=== PATIENT | female | born 1975 | race Caucasian/White ===

== ENCOUNTER 2018-08-12 08:39 | Day surgery (SDC) | payer MEDICAID ==
[~2018-08-12] VITALS: Ht 170.2 cm; Wt 82.9 kg
[2018-08-12] VITALS (15 sets, daily range): BP systolic 107–122; BP diastolic 61–82; PULSE 66–100; RESP 11–20; Ht 170.2 cm; Wt 82.9 kg
[~2018-08-12 08:39] MED LIST: CEFAZOLIN 2 GM/50 ML (PMX) 50 ML IVPB ONE; SOD CHLORIDE 0.9% 1,000 ML IV SCH
--- NOTE | 2018-08-12 12:07 | PREAC ---
Date/Time of Note Date/Time of Note DATE: 08/12/18 TIME: 12:06 Anesthesia Eval and Record Evaluation Time Pre-Procedure Interview DATE: 08/12/18 TIME: 12:06 Age 43 Sex female NPO: 8 hrs Preoperative diagnosis Right Breast Mass Planned procedure Right Breast Excisional Biopsy Past Medical History Past Medical History: None Surgery & Anesthesia Issues No known issue Meds Anticoagulation: No Beta Mary within 24 hr: No Reason Beta Mary not given: Pt. not on B-Mary No Active Prescriptions or Reported Meds Current Medications Sodium Chloride 1,000 ml @ 75 mls/hr [id number] IV ; Start 08/12/18 at 08:00; Stop 08/12/18 at 21:19 Meds reviewed: Yes Allergies Coded Allergies: No Known Allergies (Verified Allergy, Unknown, 08/12/18) Allergies Reviewed: Yes Labs/Studies Labs Reviewed: Reviewed by anesthesiologist test: N/A (s/p hysterectomy) Studies: ECG (n/a), CXR (n/a) Pre-procedure Exam Last vitals Vital Signs Date Temp Pulse Resp B/P (MAP) Pulse Ox O2 O2 Flow FiO2 Time Delivery Rate 08/12/18 97.7 66 18 112/82 98 Room Air 09:37 (92) Airway: Adequate mouth opening, Adequate thyromental dist Mallampati: Mallampati II Teeth: Normal Lung: Normal Heart: Normal ASA Physical Status ASA physical status: 2 Emergency: None Planned Anesthetic General/MAC: LMA Planned Pain Management Parenteral pain med Pre-operative Attestations Prior to commencing anesthesia and surgery, the patient was re-evaluated, there was verification of: *The patient's identity *The results of appropriate recent lab work and preoperative vital signs *The above evaluation not changing prior to induction *Anesthetic plan, risk benefits, alternative and complications discussed with patient/family; questions answered; patient/family understands, accepts and wishes to proceed. LUIS ARMANDO VENEGAS MD Aug 12, 2018 12:07
[2018-08-12] MEDS ORDERED: MIDAZOLAM 1 MG/ML 2 ML INJ ONE (12:10)
[2018-08-12] MEDS ORDERED: PROPOFOL 20 ML ONE (12:10)
[2018-08-12] MEDS ORDERED: FENTAnyl 50 MCG/ML VIAL ONE ×2 (12:10→12:11)
[2018-08-12] MEDS ORDERED: CEFAZOLIN 1 GM INJ ONE (12:10)
[2018-08-12] MEDS ORDERED: DEXAMETHASONE 4 MG/ML 5 ML INJ ONE (12:19)
[2018-08-12] MEDS ORDERED: METOCLOPRAMIDE 10 MG INJ ONE (12:19)
[2018-08-12] MEDS ORDERED: KETOROLAC 30 MG INJ ONE (12:19)
[2018-08-12] MEDS ORDERED: ONDANSETRON 4 MG INJ ONE (12:19)
[2018-08-12] MEDS ORDERED: HYDROmorphONE 1 MG/5 ML IV SYRINGE IV PRN ×3 (12:30)
[2018-08-12] MEDS ORDERED: METOCLOPRAMIDE 10 MG INJ IV PRN (12:30)
[2018-08-12] MEDS ORDERED: ONDANSETRON 4 MG INJ IV PRN (12:30)
[2018-08-12] MEDS ORDERED: EPHEDrine SULFATE 50 MG/5 ML SYG IV PRN (12:30)
[2018-08-12] MEDS ORDERED: FENTAnyl 50 MCG/ML VIAL IV PRN ×3 (12:30)
[2018-08-12] MEDS ORDERED: OXYCODONE/ACETAMINOPHEN (5/325) TAB PO PRN (12:30)
[2018-08-12] MEDS ORDERED: PHENYLephrine (100 MCG/ML) 5ML SYG ONE (12:43)
--- NOTE | 2018-08-12 13:01 | SIPON ---
Date/Time of Note Date/Time of Note DATE: 08/12/18 TIME: 13:00 Operative Report Preoperative Diagnosis Right breast lesion (pseudomembranous hyperplasia) Postoperative Diagnosis Same Operation/Procedure Performed Right needle directed partial mastectomy Surgeon see signature line roofer assistant None Anesthesia: general Estimated blood loss: 10 - 50 ml's Transfusion Required none Specimen Right partial mastectomy specimen Grafts/Implants none Complications none KULDEEP CASTILLO MD Aug 12, 2018 13:01
--- NOTE | 2018-08-12 13:17 | PAC ---
Date/Time of Note Date/Time of Note DATE: 08/12/18 TIME: 13:17 Post-Anesthesia Notes Post-Anesthesia Note Last documented vital signs Vital Signs Date Temp Pulse Resp B/P (MAP) Pulse Ox O2 O2 Flow FiO2 Time Delivery Rate 08/12/18 97.7 66 18 112/82 98 Room Air 13:37 (92) Activity: WNL Respiratory function: WNL Cardiovascular function: WNL Mental status: Baseline Pain reasonably controlled: Yes Hydration appropriate: Yes Nausea/Vomiting absent: Yes LUIS ARMANDO VENEGAS MD Aug 12, 2018 13:17
[2018-08-12] MEDS ORDERED: HYDROCODONE/APAP (7.5/325) TAB PO PRN (13:30)
--- NOTE | 2018-08-12 13:43 | OPR ---
DATE OF OPERATION: 08/12/2018 PREOPERATIVE DIAGNOSIS: Pseudomembranous stromal hyperplasia, right breast. POSTOPERATIVE DIAGNOSIS: Pseudomembranous stromal hyperplasia, right breast. PROCEDURE: Right needle-directed partial mastectomy. ANESTHESIA: General. ANESTHESIOLOGIST: ____ SURGEON: Darwin Yoon MD KNITTER OPERATOR: None. INDICATIONS FOR PROCEDURE: The patient is a 43-year-old female who underwent screening mammography. She was found to have a lesion at approximately the 7 o'clock location of her right breast that has been followed, although previous biopsy confirmed that it was a benign lesion, pseudoangiomatous stro mal hyperplasia. She stated that she was worried about it and requested excision. She consented and was scheduled for surgery. DESCRIPTION OF PROCEDURE: The patient was brought to the operating theater, placed under general ane sthesia. The right breast was prepped and draped in the usual sterile fashion. Previously placed lo calization wire was identified. A curvilinear incision was made directly over it. Subcutaneous tiss ue was dissected with cautery. The skin edges were then elevated with skin hooks and wide circumfere ntial dissection of the tissue associated with the wire then took place. Specimen was elevated, young sected, oriented, and sent for radiographic confirmation of capture. Capture was confirmed. It was then sent for permanent pathologic analysis. The wound was irrigated. Minimal bleeding was controll ed with cautery, and the skin was then reapproximated with 4-0 Vicryl suture in subcuticular fashion, and benzoin and Steri-Strips were applied. The patient tolerated the procedure well. The estimated blood loss was 20 mL. There were no complications. The patient was transported in stable condition to the recovery room, where a circumferential compression dressing was applied. Dictated By: DARWIN YOON MD TL/LI Conf#: [id number] DID#: [id number]
== END 2018-08-12 14:38 | disposition home or self-care (01) ==
LOC: SDS 08:39
PROVIDERS: ATTEND Surgery Surgical Oncology
DX: N60.91 Unspecified benign mammary dysplasia of right breast (principal)
CPT/HCPCS: 19301; 88307; J0690; J1100; J1885; J2250; J2370; J2405; J2765; J3010; Z7512; Z7610